=== PATIENT | male | born 1970 | race Caucasian/White ===

== ENCOUNTER → 2017-01-20 | Outpatient (CLI) | payer MEDICARE ==
--- NOTE | 2017-01-23 09:42 | XR ---
EXAMINATION TYPE: XR clavicle bilateral DATE OF EXAM: 01/20/2017 3:28 PM COMPARISON: NONE HISTORY: cleidocranial dyslasia TECHNIQUE: 2 views of the right and 2 views of the left clavicle submitted. FINDINGS: Right clavicle has a normal appearance. AC joint maintained. Morphology normal. Left clavicle demonstrate maintenance of the AC joint. The clavicle has a normal appearance. No acute fracture or dislocation. May be slight thickening of the mid shaft of the left clavicle which could be positional. Granuloma in the left upper lobe noted. IMPRESSION: 1. Clavicles appear to be of normal development
== END ==
LOC: RADXRYALE 15:09
PROVIDERS: ATTEND Family Medicine
DX: Q74.0 Other congenital malformations of upper limb(s), including shoulder girdle (principal)

== ENCOUNTER → 2017-01-27 | Outpatient (CLI) | payer MEDICARE ==
--- NOTE | 2017-01-27 13:16 | BD ---
EXAMINATION TYPE: MG DEXA axial skeleton. DATE OF EXAM: 01/27/2017 12:38 PM COMPARISON: NONE CLINICAL HISTORY: Height: 68 IN Weight: 140 LBS FRAX RISK QUESTIONS: Alcohol (3 or more units per day): NO Family History (Parent hip fracture): NO Glucocorticoids (More than 3mos): NO (Ex: prednisone, prednisolone, methylprednisolone, dexamethasone, and hydrocortisone). History of Fracture in Adulthood: N/A Secondary Osteoporosis: 1. Type 1 Diabetes: NO 2. Hyperthyroidism: NO 3. Menopause before 45: N/A 4. Malnutrition: NO 5. Chronic liver disease: NO Rheumatoid Arthritis: NO Current Tobacco Use: YES RISK FACTORS HISTORY OF: History of Wrist Fracture: YES RT When: AGE 11 Active: YES MEDICATIONS: Additional Medications: CALCIUM , VIT D, NORCO, OMEPRAZOLE, PT STATES THEY HAVE CLEIDOCRANIAL DYSPLASIA. EXAM MEASUREMENTS: Bone mineral densitometry was performed using the Iotera System. Bone mineral density as measured about the Lumbar spine is: ----- L1-L4(G/cm2): 1.086 T Score Values are as follows: ----- L2: -0.8 ----- L3: -0.9 ----- L4: -0.8 ----- L1-L4: -0.8 Bone mineral density has: Decreased -8.7% since study of: 02/18/2010 Bone mineral density about the R hip (g/cm2): 0.849 Bone mineral density about the L hip (g/cm2): 0.907 T Score values are as follows: -----R Neck: -1.4 -----L Neck: -0.9 -----R Intertrochanter: -1.3 -----L Intertrochanter: -1.4 Bone mineral density has: Decreased -6.9% since study of: 02/18/2010 IMPRESSION: Osteopenia (T Score between -2.5 and -1 as noted by T score values There is slightly increased risk of fracture and the patient may be considered for treatment. Re-Screen 1-2 years. LORENZA HIPS Major osteoporotic fracture risk: 3.0% Hip fracture risk: 0.7% NOTE: T-SCORE=SD OF THE YOUNG ADULT MEAN.
== END | disposition home or self-care (01) ==
LOC: RADBDWWP 12:35
PROVIDERS: ATTEND Family Medicine
DX: M85.88 Other specified disorders of bone density and structure, other site (principal); Q74.0 Other congenital malformations of upper limb(s), including shoulder girdle; M54.5 Low back pain
CPT/HCPCS: 77080

== ENCOUNTER → 2017-07-05 | Outpatient (CLI) | payer MEDICARE ==
--- NOTE | 2017-07-05 15:57 | XR ---
Left foot HISTORY: Trauma and pain 3 views of the left foot No comparisons Joint space widening is questioned in the first metatarsophalangeal joint dorsally, no dislocation or evident fracture There is osteoarthritic change at the first metatarsophalangeal joint, there is ass ociated soft tissue swelling present. Remodeling is present which is thought likely to be chronic at the distal first metatarsal and proximal phalanx of the first digit of the left foot. IMPRESSION: Osteoarthritic change and soft tissue swelling. Correlate for ligamentous laxity. MRI of the toes may be of benefit.
== END | disposition home or self-care (01) ==
LOC: RADXRYALE 15:28
PROVIDERS: ATTEND Physician Assistant Medical
DX: M19.072 Primary osteoarthritis, left ankle and foot (principal); M24.275 Disorder of ligament, left foot; M79.89 Other specified soft tissue disorders

== ENCOUNTER → 2018-06-14 | Outpatient (CLI) | payer MEDICARE ==
--- NOTE | 2018-06-14 10:36 | XR ---
EXAMINATION TYPE: XR thoracic spine complete DATE OF EXAM: 06/14/2018 COMPARISON: NONE HISTORY: Pain Alignment is anatomic. There is no compression deformities. Multilevel hypertrophic changes are seen with degenerative disc disease. Large calcified lymph node is suspected on the lateral view within t he hilum or mediastinum. Calcified granuloma overlying the right upper quadrant of the abdomen suspec joss. Pedicles are intact and there is a slight curvature of the spine. IMPRESSION: 1. Multilevel mild degenerative disc disease. Consider MRI follow-up.
--- NOTE | 2018-06-14 10:38 | XR ---
EXAMINATION TYPE: XR cervical spine comp DATE OF EXAM: 06/14/2018 COMPARISON: NONE HISTORY: Pain TECHNIQUE: Four views are submitted. FINDINGS: The odontoid is intact. There are no compression deformities. The prevertebral soft tissue structur es are within normal limits. Small cervical ribs are seen bilaterally. There is loss of the normal c ervical lordosis and there is degenerative disc disease and hypertrophic changes at C5-C6. IMPRESSION: 1. Degenerative disc disease C5-C6 with loss of the normal cervical lordosis. If there is concern for disc herniation correlate with MRI..
== END | disposition home or self-care (01) ==
LOC: RADXRYALE 09:09
PROVIDERS: ATTEND Family Medicine
DX: M50.322 Other cervical disc degeneration at C5-C6 level (principal); M43.8X2 Other specified deforming dorsopathies, cervical region; M51.34 Other intervertebral disc degeneration, thoracic region; R20.2 Paresthesia of skin
CPT/HCPCS: 72050; 72072

== ENCOUNTER → 2018-07-13 | Outpatient (CLI) | payer MEDICARE ==
--- NOTE | 2018-07-13 09:38 | MR ---
EXAMINATION TYPE: MR cervical spine wo/w con DATE OF EXAM: 07/13/2018 COMPARISON: Plain film 06/14/2018 HISTORY: Cervicalgia TECHNIQUE: Multiplanar, multisequence images of the cervical spine were acquired utilizing 7 mL intravenous Gada vist gadolinium contrast. Diffusion weighted imaging was performed. C2-C3: There is lateral extension of endplate disc complex causing some mild foraminal encroachment. No significant spinal stenosis or evident disc herniation. C3-C4: No evidence for degenerative disc disease. No disc bulge/herniation or protrusion. No Canal stenosis. Foramina are patent bilaterally. C4-C5: No evidence for degenerative disc disease. No disc bulge/herniation or protrusion. No Canal stenosis. Foramina are patent bilaterally. C5-C6: Lateral extension of endplate disc complex encroaches within the left neural foramen greater t kessler right. No significant spinal stenosis. Mild posterior broad-based disc bulge causes minimal anter ior mass effect on the thecal sac C6-C7: No evidence for degenerative disc disease. No disc bulge/herniation or protrusion. No Canal stenosis. Foramina are patent bilaterally. C7-T1: No evidence for degenerative disc disease. No disc bulge/herniation or protrusion. No Canal stenosis. Foramina are patent bilaterally. Cervical segments are intact. There is normal alignment. Cervical spinal cord is of normal signal. Craniovertebral junction relationships are within normal limits. Cervical vertebral bodies show pre served height and alignment. Mild spondylosis present at C5-6 with associated loss of disc height. No abnormal enhancement following contrast administration. IMPRESSION: Mild degenerative disc disease. No sizable disc herniation. Correlate for left C6 radiculopathy
== END | disposition home or self-care (01) ==
LOC: RADMRIMAIN 08:50
PROVIDERS: ATTEND Family Medicine
DX: M50.322 Other cervical disc degeneration at C5-C6 level (principal)
CPT/HCPCS: 72156; A9581

== ENCOUNTER → 2024-02-06 | Outpatient (CLI) | payer BC, MEDICARE ==
--- NOTE | 2024-02-07 10:45 | CTL ---
EXAMINATION TYPE: CT Low Dose Lung DATE OF EXAM: 02/06/2024 10:31 AM CLINICAL INDICATION:Male, 54 years old with history of Z87.891 personal hx tobacco use; current smoke r 1/2 pack a day, pt states he is getting over a cold form 2 weeks ago cough and congestion , history of tobacco use. COMPARISON: None. TECHNIQUE: Multiple axial non-contrast scans were obtained from approximately the lung apices through the upper abdomen. Coronal and sagittal reformatted images were obtained. Low dose technique was uti lized. CT DLP: 73 mGycm, Automated exposure control for dose reduction was used. CT Contrast: Contrast used: None Oral contrast used: None FINDINGS: ======== Lack of intravenous contrast and low dose technique limits the evaluation of the vascular and soft ti ssue structures. LUNGS: No evidence of pulmonary fibrosis. No evidence of focal consolidation, pneumothorax or pleural effusion. Nodules: RUL: None. RML: None. RLL: Densely calcified 1 cm nodule, series 7, image 33. No suspicious nodules.. STEFFANY: Densely calcified granuloma series 7, image 12 and series 7, image 9. LLL: None. AIRWAY: Patent and unremarkable. HEART: Size within normal limits. MEDIASTINUM: No gross evidence of significant adenopathy. Bilateral densely calcified hilar and med iastinal lymph nodes in the healed granulomatous disease. VASCULATURE: No aortic aneurysm. MUSCULOSKELETAL: No acute osseous abnormalities SOFT TISSUES/LYMPH NODES: Unremarkable. LOWER NECK: No significant findings. UPPER ABDOMEN: No significant findings. IMPRESSION: 1. No clinically significant pulmonary nodules. CT LUNG RAD AND CT CHEST RECOMMENDATION: Lung-Rad 2 Benign Appearance or Behavior: Continue annual sc reening with LDCT in 12 months. S Modifier (other clinically significant findings): None. Recommend smoking cessation (if current smoker), or continuation of smoking cessation (if prior smoke r). Annual screening for lung cancer with low-dose computed tomography is recommended in adults ages 55 to 77 years who have a 30 pack-year smoking history and currently smoke or have quit within the pa st 15 years. Screening should be discontinued once a person has not smoked for 15 years or develops a health problem that substantially limits life expectancy or the ability or willingness to have curat kenna lung surgery. Lung rads 2021 [email or web address]
== END | disposition home or self-care (01) ==
LOC: RADCTMAIN 09:54
PROVIDERS: ATTEND Internal Medicine
DX: Z12.2 Encounter for screening for malignant neoplasm of respiratory organs (principal); Z87.891 Personal history of nicotine dependence
CPT/HCPCS: 71271

== ENCOUNTER 2024-05-28 07:18 | Day surgery (SDC) | payer BC, MEDICARE ==
[2024-05-28 07:38] VITALS: TEMP 98.1
[2024-05-28] MEDS: LACTATED RINGERS 1,000 ML IV SCH (07:46)
[2024-05-28] MEDS ORDERED: PROPOFOL 10 MG/ML 20 ML VIAL IV ONE (07:54)
[2024-05-28] MEDS ORDERED: LIDOCAINE 1% INJ 10MG/ML (20 ML MDV) ONE (07:54)
--- NOTE | 2024-05-28 07:58 | P.GSHP ---
History of Present Illness H&P Date: 05/28/24 Chief Complaint: Colon cancer screening, anemia 54-year-old male here for upper and lower endoscopy. Patient recently found to be anemic. Patient's last upper and lower endoscopy he thinks about 10 years ago. Believes that he may have had a small polyp and a small ulcer at that time. No family history of colon cancer. Admits to rare episodes of rectal bleeding. Past Medical History Past Medical History: Cancer, GERD/Reflux, Osteoarthritis (OA) Additional Past Medical History / Comment(s): occasional blood in stool, hx skin cancer, melanoma in past, just finished A/B & steroid for head cold History of Any Multi-Drug Resistant Organisms: None Reported Past Surgical History: Orthopedic Surgery Additional Past Surgical History / Comment(s): left shoulder manipulation, left knee surg., colonoscopy Past Anesthesia/Blood Transfusion Reactions: No Reported Reaction Smoking Status: Current every day smoker Medications and Allergies Home Medications Medication Instructions Recorded Confirmed Type Cyanocobalamin [Vitamin B-12] 500 mcg PO DAILY 05/22/24 05/28/24 History HYDROcodone/APAP 5-325MG [Viola 1 - 2 tab PO Q6HR PRN 05/22/24 05/28/24 History 5-325] [place]-3/Dha/Epa/Fish Oil [Fish Oil 1 each PO DAILY 05/22/24 05/28/24 History 1,000 mg Softgel] Omeprazole [PriLOSEC] 20 mg PO AC-BRKFST 05/22/24 05/28/24 History Allergies Allergy/AdvReac Type Severity Reaction Status Date / Time cephalexin [From Keflex] Allergy rash, Verified 05/28/24 07:31 dyspnea Penicillins Allergy Anaphylaxis Verified 05/28/24 07:31 Surgical - Exam Vital Signs Temp Pulse Resp BP Pulse Ox 98.1 F 84 16 141/86 97 05/28/24 07:36 05/28/24 07:36 05/28/24 07:36 05/28/24 07:36 05/28/24 07:36 Physical exam: General: Well-developed, well-nourished HEENT: Normocephalic, sclerae nonicteric Abdomen: Nontender, nondistended Extremities: No edema Neuro: Alert and oriented Assessment and Plan (1) Colon cancer screening Narrative/Plan: Will proceed with upper and lower endoscopy at this time. Current Visit: Yes Status: Acute Code(s): Z12.11 - ENCOUNTER FOR SCREENING FOR MALIGNANT NEOPLASM OF COLON SNOMED Code(s): 663410229
--- NOTE | 2024-05-28 08:19 | P.PCN ---
Date of Procedure: 05/28/24 Procedure(s) Performed: PREOPERATIVE DIAGNOSIS: Anemia, screening POSTOPERATIVE DIAGNOSIS: Gastritis, hiatal hernia, sigmoid colon polyp, diverticulosis PROCEDURE: 1. EGD with biopsy 2. Colonoscopy with snare polypectomy and clip placement ANESTHESIA: MAC SURGEON: Aaron Hernández M.D. SPECIMENS: Colon, polyp ENDOSCOPIC PROCEDURE: The patient was on the endoscopy table in the left decubitus position. The Olympus gastroscope was inserted into the oropharynx and passed under direct visualization to the region of the third portion of the duodenum. From that point the scope was slowly withdrawn inspecting all surfaces carefully. There were no neoplastic inflammatory or polypoid lesions throughout the duodenum. The pylorus was widely patent. The stomach was carefully inspected. There was mild gastritis present. A biopsy of the antrum took place to rule out H. pylori. Retroflexion revealed a small sliding hiatal hernia. The esophagus was then carefully examined. There were no neoplastic inflammatory or polypoid lesions throughout the visualized esophagus. The patient was kept on the endoscopy table in the left decubitus position. The Olympus colonoscope was inserted into the anus and passed under direct visualization to the base of the cecum. The appendiceal orifice was visualized. From that point the scope was slowly withdrawn inspecting all surfaces carefully. There were no neoplastic inflammatory or polypoid lesions throughout the cecum, ascending, transverse, and descending colon. In the distal sigmoid at 20 to 25 cm there was a 1 to 1.5 cm pedunculated polyp that appeared somewhat friable. This could have been the source of recent visualized bleeding. This w as removed using the snare with cautery technique. The base was fairly wide. I placed a clip at the base of the polypectomy site to help prevent post polypectomy bleeding. The remainder of the sigmoid and rectum appeared normal. The patient did have prominent internal and external hemorrhoids without any evidence of recent or active bleeding. The patient had scattered mild to moderate diverticulosis as well. Digital rectal examination was normal. The patient was taken to the recovery room in stable condition per anesthesia guidelines. RECOMMENDATIONS: Await biopsy results. Will contact patient with timing of the next colonoscopy. Definite source of anemia not clearly identified although large polyp may have been contributing.
[2024-05-28 08:35] VITALS: BP 125/87; PULSE 77; RESP 18
== END 2024-05-28 08:58 | disposition home or self-care (01) ==
LOC: ORWHC2ENDO 07:18
PROVIDERS: ATTEND Surgery
DX: K29.70 Gastritis, unspecified, without bleeding (principal); K44.9 Diaphragmatic hernia without obstruction or gangrene; K21.9 Gastro-esophageal reflux disease without esophagitis; K62.5 Hemorrhage of anus and rectum; K57.30 Diverticulosis of large intestine without perforation or abscess without bleeding; D12.5 Benign neoplasm of sigmoid colon; D64.9 Anemia, unspecified; C18.9 Malignant neoplasm of colon, unspecified; F17.200 Nicotine dependence, unspecified, uncomplicated; Z88.0 Allergy status to penicillin; Z88.1 Allergy status to other antibiotic agents; Z79.810 Long term (current) use of selective estrogen receptor modulators (SERMs); Z79.891 Long term (current) use of opiate analgesic; Z79.899 Other long term (current) drug therapy; Z85.828 Personal history of other malignant neoplasm of skin
CPT/HCPCS: 88305; 45385; 43239; J2001; J2704